=== PATIENT | male | born 1990 | race Caucasian/White ===

== ENCOUNTER 2016-12-14 17:10 | Emergency (ER) | payer OTHER ==
[2016-12-14 17:21] VITALS: RESP 18; TEMP 98.2
[2016-12-14] MEDS ORDERED: CHLORDIAZEPOXIDE 25MG PREPK#6 BTL TAKEHOME ONE (17:50)
--- NOTE | 2016-12-14 17:59 | EDPHY ---
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 He states that since he has been unable to sleep and has been anxious and jittery. He is here requesting medication to help him sleep. He has checked himself into rehab program the begins in 3 days. He states the last time he had something similar list he was given Librium prepack which did help him for 3 days. He denies any fevers. He has several small wounds to his arms and legs from picking. No sign of infection. REVIEW OF SYSTEMS: Constitutional: denies: chills, fever, recent illness, recent injury EENTM: denies: blurred vision, double vision, nose congestion Respiratory: denies: cough, shortness of breath Cardiac: denies: chest pain, irregular heart rate, lightheadedness, palpitations Gastrointestinal/Abdominal: denies: abdominal pain, diarrhea, nausea, vomiting, blood streaked stools Genitourinary: denies: dysuria, frequency, hematuria, pain Musculoskeletal: denies: joint pain, muscle pain Skin: See HPI Neurological: denies: headache, numbness, paresthesia, tingling, dizziness, weakness Hematologic/Lymphatic: denies: blood clots, easy bleeding, easy bruising Immunologic/allergic: denies: HIV/AIDS, transplant EXAM: GENERAL: Well-appearing, well-nourished and in no acute distress. HEAD: Atraumatic, normocephalic. EYES: Pupils equal round and reactive to light, extraocular movements intact, sclera anicteric, conjunctiva are normal. ENT: TMs normal, nares patent, oropharynx clear without exudates. Moist mucous membranes. NECK: Normal range of motion, supple without lymphadenopathy or JVD. LUNGS: Breath sounds clear to auscultation bilaterally and equal. No wheezes rales or rhonchi. HEART: Regular rate and rhythm without murmurs, rubs or gallops. ABDOMEN: Soft, nontender, normoactive bowel sounds. No guarding, no rebound. No masses appreciated. BACK: No CVA tenderness, no spinal tenderness, step-offs or deformities EXTREMITIES: Normal range of motion, no pitting or edema. No clubbing or cyanosis. NEUROLOGICAL: Cranial nerves II through XII grossly intact. Normal speech, normal gait. 5/5 strength, normal movement in all extremities, normal sensation PSYCH: Anxious SKIN: Small healing sores to feet and left arm from picking. No sign of infection. No cellulitis. No abscess Source: Patient Exam Limitations: No limitations - Personal History Current Tetanus/Diphtheria Vaccine: Unsure Current Tetanus Diphtheria and Acellular Pertussis (TDAP): Unsure - Medical/Surgical History Hx Asthma: No Hx Chronic Respiratory Disease: No Hx Diabetes: No Hx Cardiac Disease: No Hx Renal Disease: No Hx Cirrhosis: No Hx Alcoholism: No Hx HIV/AIDS: No Hx Splenectomy or Spleen Trauma: No Other PMH: substance abuse, withdrawal sz - Family History Significant Family History: No pertinent family hx - Social History Smoking Status: Never smoked Alcohol Use: Sober Drug Use: None Constitutional: Initial Vital Signs Temperature (C) 36.8 C 12/14/16 17:18 Heart Rate 93 12/14/16 17:18 Respiratory Rate 18 12/14/16 17:18 Blood Pressure 115/74 12/14/16 17:18 O2 Sat (%) 93 12/14/16 17:18 O2 Delivery Mode Room Air Allergies/Adverse Reactions: haloperidol [From Haldol] Allergy (Verified 12/14/16 17:17) Home Medications: Medication Instructions Recorded Cymbalta 12/14/16 Lamictal 12/14/16 Medical Decision Making ED Course/Re-evaluation: The patient needs help with withdrawal and insomnia. He is requesting a Librium prepack. I agree that this is reasonable. [facility] not [facility] because he has been there before and states that it is very dirty. He has a job and would like to continue working and possible. He is planning to follow up at a rehab in 3 days. He declines further workup or testing at this time. Differential Diagnosis: Partial list of the Differential diagnosis considered include but were not limited to; substance abuse, alcohol withdrawal, polysubstance withdrawal , skin infection and although unlikely based on the history and physical exam, I also considered cellulitis, abscess, suicidality , infection . I discussed these differential diagnoses and the plan with the patient as well as the usual and expected course. The patient understands that the diagnosis is provisional and that in medicine we are not always correct and that further workup is often warranted. Usual and customary warnings were given. All of the patient's questions were answered. The patient was instructed to return to the emergency department should the symptoms at all worsen or return, otherwise to followup with the physician as we discussed. - Data Points Medications Given: Discontinued Medications Chlordiazepoxide (Librium 25 Mg Prepack#6) 1 btl TAKEHOME EDNOW ONE Stop: 12/14/16 17:51 Last Admin: 12/14/16 18:07 Dose: 1 btl Departure - Departure Disposition: Home, Routine, Self-Care Clinical Impression: Polysubstance abuse Condition: Fair Instructions: Chlordiazepoxide (By mouth), Polysubstance Abuse (ED) Referrals: NONE *PRIMARY CARE P,. [Primary Care Provider] - As per Instructions Barbra Ling MD [Medical Doctor] - As per Instructions
[2016-12-14 18:10] VITALS: BP 116/72; PULSE 91; O2SAT 94
== END 2016-12-14 18:10 | disposition home or self-care (01) ==
DX: F19.10 Other psychoactive substance abuse, uncomplicated (principal)